=== PATIENT | male | born 1955 | race African-American/Black ===

== ENCOUNTER 2017-02-07 12:23 | Observation (INO) | payer OTHER ==
--- NOTE | ~2017-02-07 | CO ---
Unit #: [id number] #: [id number] Patient: JUVENCIO GLEZ [id number] [address] [place], [place] [address] [id number] I MR#: [id number] NAME: JUVENCIO GLEZ ROOM: 566 Age: 61 Sex: M Admission Date: 02/07/2017 : 1955 Attending Physician: Yoana Hernandez M.D. Primary Care Physician: Primary Care Physician No Requesting Physician: Osvaldo Rebolledo M.D. Consultation Date: 02/08/2017 CONSULTATION REPORT REASON FOR CONSULTATION Severe anemia, please evaluate. HISTORY OF PRESENT ILLNESS Mr. Juvencio Glez is a 61-year-old with a history of previous stroke on aspirin and COPD, was admitted to the hospital complaining of chest pain. Apparently, the patient was noted to be severely anemic with a hemoglobin of 8.8 and MCV 71.9 leading to this consultation. Mr. Jaimes himself is a poor historian. Much of the information obtained from the records. He did have a colonoscopy in 2012, which was negative. He tells me he may have blood in the stools, has been taking aspirin 81 mg, although admitted aspirin dosage as 325 mg. Workup of chest pain so far been negative and he is scheduled for possible discharge home after being evaluated by [facility]. No history of anemia according to him nor of any blood transfusions. PAST MEDICAL HISTORY 1. History of hypertension. 2. Stroke 3 to 4 years ago. 3. Gastroesophageal reflux disease. 4. Seizure disorder. 5. Thyroid problems. PAST SURGICAL HISTORY Includes; 1. Tonsillectomy. 2. Rectal abscess. 3. Hand surgery. FAMILY HISTORY Apparently of coronary artery disease. SOCIAL HISTORY Smokes about a pack a day. He is trying to quit. Does not drink any alcohol. His urine drug screen was negative. REVIEW OF SYSTEMS Not reliable as the patient is a poor historian and keeps changing his story. PHYSICAL EXAMINATION GENERAL: He is a middle-aged man, sitting up in a chair, in no distress. Awake, alert, and oriented x3. VITAL SIGNS: Temperature is 97.6, pulse is 91, respirations 18, blood Unit #: [id number] #: [id number] Patient: REYNALDO,JUVENCIO pressure 162/107, and O2 saturation 100% on room air. HEENT: Shows pallor. Pupils are equal and reactive well to light. Mucous membranes are moist. NECK: Without adenopathy, JVD, or thyromegaly. CARDIOVASCULAR: First and second heart sounds are heard and regular without murmurs, gallops, or rubs. LUNGS: Chest expansion is symmetric. Bilateral equal air entry. Normal breath sounds. ABDOMEN: Soft and nontender. EXTREMITIES: Warm with good pulses. No edema, cyanosis or clubbing. NEUROLOGIC: He is awake, alert, and oriented x3 without any focal findings. SKIN: Negative. LYMPHATIC: Negative. PSYCHIATRIC: Affect is normal. Continues to wander, may confabulate as well. DIAGNOSTIC STUDIES LABORATORY RESULTS: Hemoglobin 6.2. Urine drug screen is negative. CBC has a white count of 9.1, hemoglobin is 8.8, MCV 71.3, and platelet count is 444,000. Basic metabolic panel shows a BUN of 13, creatinine is 1. CBC done in the past shows that his MCV has been normal previously being 85.9 on 03/10/2009. He has had red cell microcytosis for a number of years dating back to at least 2009. ASSESSMENT AND PLAN Mr. Juvencio Jaimes is a 61-year-old with a history of stroke, was admitted with chest pain, on aspirin therapy, admitted with microcytic anemia, MCV has been normal in 2008. This is most likely iron deficiency anemia. He did have a negative colonoscopy in 2012, but given 4-year gap, should probably have it again. RECOMMENDATIONS 1. Parenteral iron with Ferrlecit 250 mg IV x1. 2. Ferrous sulfate 324 mg p.o. three times a day. 3. Evaluation with GI endoscopy. This can be done as an outpatient. Thank you for allowing me to participate in his care. Dictated by... Gema Ellington/miguel angel TD: 02/09/2017 02:45 JOB #: [id number] CONSULTATION REPORT Page 1 of 1 X Ash Schroeder MD X CONSULTATION REPORT
--- NOTE | ~2017-02-07 | CO ---
Unit #: [id number] #: [id number] Patient: JUVENCIO GLEZ [id number] [address] [address] [id number] I MR#: [id number] NAME: JUVENCIO GLEZ ROOM: 566 Age: 61 Sex: M Admission Date: 02/07/2017 : 1955 Attending Physician: Yoana Hernandez M.D. Consultation Date: 02/08/2017 CONSULTATION REPORT REASON FOR CONSULTATION Anxiety, agitation, paranoia. HISTORY OF PRESENT ILLNESS Mr. Juvencio Glez is a 61-year-old male, seen in room 566, bed 1 on 02/08/2017. The patient has a history of bipolar disorder, last admitted at [facility] in 2014, currently on no psychotropic medication. The patient was admitted with chest discomfort, reported history of cocaine abuse and alcohol abuse. The patient denied any recent use. The patient was somewhat agitated, confused, guarded. The patient's urine drug screen was negative. The patient dressed in hospital attire, eating his lunch, needing some redirection, but no aggression. The patient currently denied any suicidal or homicidal ideation. Denied any auditory or visual hallucination. The patient was somewhat guarded. Reported history of alcohol abuse, cocaine abuse. Reported good support system. PAST PSYCHIATRIC HISTORY Remarkable for history of inpatient treatment couple of years ago at [facility] for bipolar mood disorder. No history of any suicide attempt. MEDICAL HISTORY Remarkable for hypertension, stroke, gastroesophageal reflux disease, anemia, gastrointestinal problems, seizure, thyroid problem, respiratory problem. MEDICATION HISTORY The patient is on Protonix, Zestril, prednisone, Toprol, Os-Vick, Vibramycin, NovoLog. Please refer to MAR for detail. FAMILY HISTORY AND SOCIAL HISTORY The patient reports that he has a good support system. No history of any abuse. History of substance abuse as mentioned above. REVIEW OF SYSTEMS Complete review of systems unremarkable except as mentioned above. MENTAL STATUS EXAMINATION Vital signs; pulse 88, respirations 18, blood pressure 141/78, oxygen saturation 100%, temperature 98.3. General appearance; the patient dressed casually, sitting comfortably in chair, eating his breakfast. Attention span and concentration, poor. Speech, rapid. Oriented in self and place. Mood and affect, labile. Thought process, circumstantial and Unit #: [id number] #: [id number] Patient: JUVENCIO GLEZ guarded. Thought content, guarded and paranoid, but denied any thoughts of harming self or others. Denied any auditory or visual hallucination. Recent and remote memory, fair to slightly impaired. Language, fair. Fund of knowledge, fair to slightly impaired. Insight and judgment, fair to slightly impaired. DIAGNOSES Psychiatric: Psychosis, not otherwise specified, F29.0; agoraphobia with panic disorder, F40.01; cocaine use disorder, moderate to severe, F14.20; alcohol use disorder, moderate to severe, F10.20. Secondary diagnosis: Deferred. Medical diagnosis: Please refer to H and P. Stressors: Psychosocial stressor. ASSESSMENT/PLAN 1. Supportive psychotherapy and psychoeducation provided to the patient. 2. Educated about benefits and side effects of medication and course and prognosis of illness. 3. Advised Zyprexa 5 mg b.i.d. and advised to monitor the patient closely, also advised Vistaril 25 mg t.i.d. for anxiety. We will continue to follow. Please feel free to call if any questions telephone #[phone]. Dictated by... Gema Fu/miguel angel TD: 02/09/2017 01:50 JOB #: [id number] CONSULTATION REPORT Page 1 of 1 X Herminio Knutson MD X CONSULTATION REPORT
--- NOTE | ~2017-02-07 | CO ---
Unit #: [id number] #: [id number] Patient: ELSIE JACOBS [id number] [facility] [address] [facility]. [place], [place] [address] [id number] I MR#: [id number] NAME: ELSIE JACOBS ROOM: 566 Age: 61 Sex: M Admission Date: 02/07/2017 : 1955 Attending Physician: Yoana Hernandez M.D. Consultation Date: 02/08/2017 CONSULTATION REPORT REASON FOR CONSULTATION Anemia and medical management. HISTORY OF PRESENT ILLNESS The patient is a 61-year-old male with a past medical history of COPD with continued tobacco abuse, hypertension, cerebrovascular accident, GERD, bipolar disorder, and degenerative disc disease, who was admitted by Dr. Rebolledo for chest pain. The patient is a poor historian and is quite tangential at the time of evaluation. He apparently presented to the emergency department for chest pain. He now denies any type of chest pain and no trouble breathing. He states that he has not had any vomiting or diarrhea. He denies any blood in the stool or black tarry stool. He is without complaints but does not really answer any questions directly. The patient's hemoglobin was 8.8 this morning. It was 8.9 yesterday. MCV is 71.3. Hemoglobin was previously 13.8 on December 28, 2014. Hematology has been consulted and has already ordered iron studies. Psychiatry has been consulted as well. We have been asked to assume care. PAST MEDICAL HISTORY 1. Admission to [facility] March 22-2009, for pneumonia. 2. Hypertension. 3. Cerebrovascular accident. 4. Gastroesophageal reflux disease. 5. Anemia. 6. Chronic obstructive pulmonary disease with continued tobacco abuse. 7. Bipolar disorder. 8. Degenerative disc disease. PAST SURGICAL HISTORY 1. EGD March 23, 2010, showed mild to moderate Sirisha esophagitis with distal erosive esophagitis and medium-sized hiatal hernia. Colonoscopy March 14, 2013, was completely normal. 2. Tonsillectomy. 3. Incision and drainage for rectal abscess. SOCIAL HISTORY The patient smokes cigars. He states that he has an occasional cocktail. He walks without assistance. FAMILY HISTORY Notable for his dad having lung cancer. Unit #: [id number] #: [id number] Patient: ELSIE JACOBS ALLERGIES No known allergies. HOME MEDICATIONS 1. Sulfasalazine 500 mg daily. 2. Prednisone 5 mg daily. 3. Amlodipine 7.5 mg daily. 4. Metoprolol 25 mg daily. 5. Hydralazine 25 mg t.i.d. 6. Zestril 10 mg daily. 7. Metformin 1000 mg twice daily. 8. Neurontin 100 mg q.8 hours. 9. Carmine 7.5/325 at 4 times daily. 10. Amaryl 2 mg daily. 11. Hydroxyzine 10 mg t.i.d. 12. Clobetasol cream. 13. Ondansetron. 14. Leflunomide 10 mg daily. 15. Lomotil 4 times daily. 16. Doxycycline 100 mg twice daily. 17. Multivitamin daily. 18. Calcium plus D daily. REVIEW OF SYSTEMS A complete review of systems is negative except as indicated in the History of Present Illness. The patient states that his weight "fluctuates." PHYSICAL EXAMINATION VITAL SIGNS: Temperature is 97.6, pulse 91, respirations 18, blood pressure 162/107, and oxygen saturation is 100% on room air. GENERAL: Patient is an male who is pacing his room. He is in no acute distress. HEENT: Head is atraumatic. Mucous membranes are moist. NECK: Supple. Trachea is midline. CARDIOVASCULAR: Regular rate and rhythm. LUNGS: Occasional expiratory wheezes. Breathing is not labored with conversation. ABDOMEN: Soft and nontender with bowel sounds present in all four quadrants. EXTREMITIES: Nontender with no pedal edema. NEUROLOGIC: Patient is awake and alert. He is moving all extremities. PSYCHIATRIC: Patient is very tangential. He is cooperative. SKIN: Skin of examined areas is warm and dry. DIAGNOSTIC STUDIES LABORATORY: Complete blood count from today notable hemoglobin and hematocrit of 8.8 and 29.1, respectively, MCV of 71.3, RDW 18.3, and platelets are 444,000. Basic metabolic panel is completely normal. Troponin is less than 0.03. Urine toxicology screen is negative. Urinalysis is essentially negative. Hemoglobin A1c is 6.2. IMAGING: Chest x-ray from yesterday was normal. CARDIOLOGY: EKG shows normal sinus rhythm with a rate of 92 beats per minute. ASSESSMENT Unit #: [id number] #: [id number] Patient: ELSIE JACOBS The patient is a 61-year-old male with: 1. Chest pain. Cardiology has cancelled the stress test. The patient denies any chest pain currently. 2. Chronic obstructive pulmonary disease with continued tobacco abuse. 3. Microcytic anemia. The patient's hemoglobin was 8.9 yesterday. It is 8.8 today. It was 13.8 on December 28, 2014. He has had EGD and colonoscopy as noted above. He denies any current blood in the stool or black tarry stool. Hematology has already seen the patient and recommended Gastroenterology evaluation. 4. Hypertension. 5. Cerebrovascular accident. 6. Gastroesophageal reflux disease. 7. Bipolar disorder. Dr. Knutson is also following. 8. Degenerative disc disease. PLAN 1. Regarding anemia, iron studies have already been ordered by Dr. Blanco. I have ordered Hemoccult stool and consulted Dr. Mccauley for possible endoscopy. Will change the patient's diet to clear liquid for possible endoscopy. 2. Hemoglobin and hematocrit q.6 hours. 3. Additional workup and consultants based on above. 1. Dictated by... Gema Figueroa/asiya TD: 02/08/2017 14:47 JOB #: [id number] CONSULTATION REPORT Page 1 of 1 X Yoana Hernandez MD X CONSULTATION REPORT
--- NOTE | ~2017-02-07 | TH ---
Unit #: [id number] #: [id number] Patient: ELSIE JACOBS [id number] [address] [address] [id number] I MR#: [id number] NAME: ELSIE JACOBS : 1955 SEX: M STUDY DATE/TIME: 02/08/2017 UNIT: [facility] ROOM: 566 STUDY DESCRIPTION: Stress Nuclear Study Attending Physician: Yoana Hernandez M.D. Referring Physician: Self Referral-Refer Use Only Primary Care Physician: No Primary Care Physician CARDIOLOGY REPORT EXAM Stress nuclear study INDICATION Chest pain. SUMMARY The patient was given technetium-99m Cardiolite 10.73 mCi at rest. The patient was instructed to hold still during acquisition. Patient was verbally and physically very active during the acquisition, and would not follow recommendations so that accurate assessment could be performed. Therefore, resting only studies were done. The resting study showed no significant un-perfused areas, but because of the very large shifts, this study was processed one frame at a time, and small areas may not be adequately assessed. IMPRESSION 1. No resting perfusion defect visualized. 2. Consider repeat study when patient is able to follow directions. Dictated by... Gema Rahman/brianna TD: 02/08/2017 17:27 JOB #: [id number] CARDIOLOGY REPORT Page 1 of 1 X Osvaldo Rebolledo MD CARDIOLOGY REPORT
--- NOTE | ~2017-02-07 | HP ---
Unit #: [id number] #: [id number] Patient: ELSIE GLEZ [id number] [address] [place], [place] [address] [id number] I MR#: [id number] NAME: ELSIE GLEZ ROOM: 77297 Age: 61 Sex: M Admission Date: 02/07/2017 : 1955 Attending Physician: Osvaldo Rebolledo M.D. HISTORY AND PHYSICAL CHIEF COMPLAINT Chest pain. HISTORY OF PRESENT ILLNESS Mr. Glez is a 61-year-old male who has not been taking his antihypertensive medications after a TIA. He continues to smoke and has COPD. He has no primary care physician and has a psychiatric history which makes accurate history suboptimal. He notes to the ER physician chest pain, but with me, he is very vague about how this occurs, how it is relieved, and how often it occurs. To the ER physician, he said it comes and goes, and it is associated with shortness of breath and heartburn, but is unsure about how long it lasts. It was not present when we saw him. His initial troponins were normal. His initial ECG showed no diagnostic ST shifts. However, there were biphasic T waves in lead AVF; thus, it was abnormal rest ECG. As I evaluated him in his room, I found that he had knocked his urine containers off and urine was all over the floor. His crackers and the empty packages were on the floor, as well as most of the cart sheets on the floor. He said that all he wanted was something to drink. A GI cocktail was given with some relief. PAST MEDICAL HISTORY 1. Hypertension. 2. Stroke. 3. Gastroesophageal reflux disease. 4. Anemia. 5. Gastrointestinal problems. 6. Seizures. 7. Psychiatric history. 8. Thyroid history. 9. Respiratory history. Denies diabetes or cholesterol. PAST SURGICAL HISTORY 1. Left hand surgery. 2. Tonsillectomy. 3. Rectal abscess. FAMILY HISTORY Premature atherosclerotic disease he says. His father had a pacemaker. Hard to localize whether or not it was premature. Unit #: [id number] #: [id number] Patient: ELSIE GLEZ SOCIAL HISTORY Continues to smoke. Denies alcohol. He says he does not do much cocaine and never heroin. ALLERGIES None known. MEDICATIONS He states that he is unsure but has not taken anything in a while. REVIEW OF SYSTEMS Not thought to be accurate. He says he does not sleep well. PHYSICAL EXAMINATION VITAL SIGNS: Blood pressure 152/82, heart rate 97 and regular, and respiratory rate is 23. GENERAL: Pleasant, alert, in no acute distress. SKIN: Warm and dry. No xanthelasma. MUSCULOSKELETAL: No missing digits. Moves easily for evaluation. NEUROLOGICAL: Appropriate mood and affect. Alert and oriented x3. HEENT: Pupils equal, round and reactive. No oral cyanosis. No icterus. NECK: Carotids clear to auscultation with no carotid bruits. Normal carotid upstroke bilaterally. Thyroid is normal in size and texture without masses or tenderness. LUNGS: Inspiratory and expiratory wheezes. CARDIAC: Normal point of maximum impulse. Normal S1 and S2. No S3, S4 or rub. ABDOMEN: No hepatosplenomegaly, masses or tenderness. Normal bowel sounds. No abdominal bruits heard. EXTREMITIES: No clubbing, cyanosis or edema. Excellent posterior tibial and dorsalis pedis pulses. DIAGNOSTIC STUDIES LABORATORY: Creatinine is 0.9 and potassium 3.8. Liver enzymes slightly elevated at 81 and 51 AST and ALT. Hemoglobin is 8.9, white blood count 11.7, and platelet count 445,000. CARDIOLOGY: ECG is as noted above. IMPRESSION 1. Chest pain, nondescript, probable gastrointestinal, possible heart. 2. Chronic obstructive pulmonary disease with continued smoking. 3. Abnormal ECG with biphasic T waves lead III and slight ST depression. 4. Tobacco abuse. 5. Hypertension, untreated, medication not taken. 6. History of cerebrovascular accident. 7. Family history of coronary artery disease. 8. Anemia. PLANS 1. Stress and echo. 2. Check overnight oximetry. 3. Check Hemoccult. 4. Hopefully home tomorrow. 5. Have Dr. Knutson see regarding psych history. 1. Unit #: [id number] #: [id number] Patient: ELSIE GLEZ Dictated by Gema Rahman TD: 02/07/2017 20:36 JOB #: [id number] HISTORY AND PHYSICAL Page 1 of 1 X Osvaldo Rebolledo MD HISTORY AND PHYSICAL
--- NOTE | ~2017-02-07 | EKG ---
PATIENT: ELSIE JACOBS UNIT #: [id number] Ventricular Rate: 92 BPM Atrial Rate: 92 BPM P-R Interval: 138 ms QRS Duration: 74 ms Q-T Interval: 364 ms QTC Calculation(Bezet): 450 ms P Power: 84 degrees Calculated R Power: -4 degrees Calculated T Power: -21 degrees Diagnosis Line: Normal sinus rhythm Diagnosis Line: Nonspecific ST abnormality Diagnosis Line: Otherwise normal ECG Diagnosis Line: When compared with ECG of 28-DEC-2014 19:21, Diagnosis Line: Vent. rate has increased BY 37 BPM Diagnosis Line: Non-specific change in ST segment in Lateral leads Diagnosis Line: Confirmed by LISBETH LIN MD ([id number]) on 02/08/2017 Diagnosis Line: 6:00:52 PM INTERPRETING MD: DELIA DAIGLE
--- NOTE | ~2017-02-07 | CR72 ---
[facility] A Service of [facility] RADIOLOGY TEXT RESULTS PATIENT: ELSIE JACOBS LOCATION: [facility] : 57 UNIT #: [id number] AGE: [address]: Giuseppe Zhang MD SEX: M ORDER DR: [id number] [facility] [address] [facility]. [place], [place] [address] [id number] MR#: [id number] Acc #: [id number] NAME: ELSIE JACOBS : 1955 SEX: M STUDY DATE/TIME: 02/07/2017 13:08 UNIT: [facility] ROOM: STUDY DESCRIPTION: CR Chest Single View Portable Attending Physician: Giuseppe Zhang Referring Physician: Self Referral-Refer Use Only Ordering Physician: Giuseppe Saldivar M.D. Primary Care Physician: Primary Care Physician No MEDICAL IMAGING REPORT This report is preliminary unless electronic signature is present EXAM Portable chest 02/07 INDICATIONS Pneumonia. Shortness of air. Symptoms for 1 month. History of hypertension and COPD. COMPARISON 12/24/2013 FINDINGS A single AP portable view of the chest shows both lungs to be clear. The heart is normal in size. The mediastinal contour is normal. No significant bone abnormalities are seen. IMPRESSION Normal portable chest. Dictated by... Jefferson Malloy Jr., M.D. THIS IS AN ELECTRONICALLY VERIFIED REPORT Jefferson Malloy Jr., M.D. at 02/07/2017 6:34 PM RLK/queta TD: 02/07/2017 17:01 JOB #: [id number] MEDICAL IMAGING REPORT Page 1 of 1 COPY
[~2017-02-07 12:23] MED LIST: ADVAIR; ALBUTEROL17 GM; ALBUTEROL17 GM INH; AMLODIPINE BESYL5 MG PO; ANTIINFLAMMATORY MED; ATENOLOL PO; ATENOLOL50 MG PO; BENZONATATE PO; CAPOZIDE PO; DEPAKOTE PO; DEPAKOTE250 MG PO; DIAZEPAM10 MG PO; DIFLUCAN100 MG PO; HYDROCHLOROTHIA25 MG PO; K-DUR10 MEQ PO; LEVAQUIN250 MG PO; LEVOTHYROXINE25 MCG PO; LISINOPRIL PO; LORTAB 5/500 TA1 TA1 PO; LORTAB 7.5-5001 TAB PO; MEDROL4 MG/DOSE- PO; MIRTAZAPINE30 MG PO; NEXIUM; NORVASC10 MG PO; OMEPRAZOLE40 MG PO; ORUDIS75 M1 PO; PAIN RELIEF325 MG PO; PREDNISONE PO; PROCTOFOAM-HC F10 GM PR; ST. JOSEPH ASP325 MG PO; SYMBICORT INH; TEMAZEPAM30 MG PO; VALIUM10 MG PO; ZITHROMAX PO; ZYPREXA10 MG PO
[2017-02-07 13:28] LABS: BASOPHIL# 0.1 X10e3 (0-0.3); BASOPHIL% 0.8 % (0-2.5); EOSINOPHIL# 0.4 X10e3 (0-0.7); EOSINOPHIL% 3.7 % (0.0-7.0); HEMATOCRIT 29.5 % (38.0-50.0); HEMOGLOBIN 8.9 gm/dL (13.0-16.0); LYMPHOCYTE# 1.5 X10e3 (1.0-3.5); LYMPHOCYTE% 12.6 % (17.0-45.0); MEAN CORPUSCULAR HEMOGLOBIN 21.3 PG (28-34); MEAN CORPUSCULAR HGB CONC 30.1 g/dL (30-36); MEAN PLATELET VOLUME 7.4 FL (6.5-11.5); MONOCYTE% 8.3 % (3.0-12.0); NEUTROPHIL# 8.7 X10e3 (1.5-7.1); NEUTROPHIL% 74.6 % (40-75); PLATELET COUNT 445 X10e3 (140-420); RED BLOOD COUNT 4.15 X10e (3.90-5.60); RED CELL DISTRIBUTION WIDTH 18.9 % (11.0-15.5); WHITE BLOOD COUNT 11.7 X10e3 (4.0-10.5)
[2017-02-07 13:28] LABS: POC - CKMB 20.3 ng/mL (0.0-7.9); POC - TROPONIN <0.05 ng/mL (<=0.05)
[2017-02-07 13:35] LABS: DIFF IND NO
[2017-02-07 13:48] LABS: INR 0.9; PARTIAL THROMBOPLASTIN TIME 20.6 SECONDS (23.5-31.3); PROTHROMBIN TIME (PATIENT) 9.8 SECONDS (9.6-11.5)
[2017-02-07 13:56] LABS: ALBUMIN SERUM 3.9 g/dL (3.5-5.0); BILIRUBIN, DIRECT 0.1 mg/dL (0.0-0.2); BILIRUBIN,INDIRECT 0.4 mg/dL (0.0-0.9); BILIRUBIN,TOTAL 0.5 mg/dL (0.2-2.0); CALCIUM SERUM 8.8 mg/dL (8.4-10.2); CREATININE SERUM 0.9 mg/dL (0.6-1.4); GLOM FILT RATE Estimated 107.2 mL/min (>60); POTASSIUM 3.8 mmol/L (3.5-5.1); PROTEIN TOTAL SERUM 7.7 g/dL (6.0-8.3)
[2017-02-07 15:34] LABS: POC - CKMB 10.5 ng/mL (0.0-7.9); POC - TROPONIN <0.05 ng/mL (<=0.05)
[2017-02-07] MEDS ORDERED: PATIENT'S PHARMACY (16:43)
[2017-02-07 17:22] LABS: AMPHETAMINE NEG (NEG); BARBITURATES NEG (NEG); BENZODIAZEPINES NEG (NEG); COCAINE NEG (NEG); MARIJUANA NEG (NEG); OPIATES NEG (NEG); TRICYCLIC ANTIDEPRESSANTS NEG (NEG); U METHADONE NEG (NEG)
[2017-02-07] MEDS ORDERED: AZULFIDINE500 M1 PO (18:01)
[2017-02-07] MEDS ORDERED: PREDNISONE5 M1 PO (18:02)
[2017-02-07] MEDS ORDERED: LEFLUNOMIDE10 MG PO (18:02)
[2017-02-07] MEDS ORDERED: AMLODIPINE BESYL5 MG PO (18:03)
[2017-02-07] MEDS ORDERED: HYDRALAZINE HCL25 MG PO (18:04)
[2017-02-07] MEDS ORDERED: METOPROLOL SUCC25 MG PO (18:04)
[2017-02-07] MEDS ORDERED: METFORMIN HCL1000 M2 PO (18:05)
[2017-02-07] MEDS ORDERED: LISINOPRIL PO (18:05)
[2017-02-07] MEDS ORDERED: NEURONTIN100 MG PO (18:06)
[2017-02-07] MEDS ORDERED: HYDROCODON-ACE1 EAC9 PO (18:07)
[2017-02-07] MEDS ORDERED: HYDROXYZINE HCL10 MG PO (18:07)
[2017-02-07] MEDS ORDERED: AMARYL2 MG PO (18:07)
[2017-02-07] MEDS ORDERED: CLOBETASOL E 0.60 GM TOP (18:08)
[2017-02-07] MEDS ORDERED: ONDANSETRON ODT4 MG PO (18:08)
[2017-02-07] MEDS ORDERED: LOMOTIL 2.5-0.1 EACH PO (18:09)
[2017-02-07] MEDS ORDERED: DOXYCYCLINE HY100 M3 PO (18:10)
[2017-02-07] MEDS ORDERED: CALCIUM + D SO1 EACH PO (18:11)
[2017-02-07] MEDS ORDERED: MULTI VITAMIN1 EACH PO (18:11)
[2017-02-07 18:58] LABS: CHOLESTEROL 156 mg/dL (0-200); HDL CHOLESTEROL 41 mg/dL (29-75); LDL CHOLESTEROL 80 mg/dL (-130); LDL/HDL RATIO 2 RATIO (0-4); TRIGLYCERIDES 173 mg/dL (10-160)
[2017-02-08 04:45] LABS: BASOPHIL% 0.4 % (0-2.5); DIFF IND NO; EOSINOPHIL# 0.6 X10e3 (0-0.7); EOSINOPHIL% 6.8 % (0.0-7.0); HEMATOCRIT 29.1 % (38.0-50.0); HEMOGLOBIN 8.8 gm/dL (13.0-16.0); LYMPHOCYTE# 1.9 X10e3 (1.0-3.5); LYMPHOCYTE% 21.1 % (17.0-45.0); MEAN CELL VOLUME 71.3 FL (83-96); MEAN CORPUSCULAR HEMOGLOBIN 21.5 PG (28-34); MEAN CORPUSCULAR HGB CONC 30.1 g/dL (30-36); MEAN PLATELET VOLUME 7.1 FL (6.5-11.5); MONOCYTE# 0.8 X10e3 (0-1.0); MONOCYTE% 8.5 % (3.0-12.0); NEUTROPHIL# 5.8 X10e3 (1.5-7.1); NEUTROPHIL% 63.2 % (40-75); PLATELET COUNT 444 X10e3 (140-420); RED BLOOD COUNT 4.09 X10e (3.90-5.60); RED CELL DISTRIBUTION WIDTH 18.3 % (11.0-15.5); WHITE BLOOD COUNT 9.1 X10e3 (4.0-10.5)
[2017-02-08 05:03] LABS: CALCIUM SERUM 8.4 mg/dL (8.4-10.2); GLOM FILT RATE Estimated 94.4 mL/min (>60); MAGNESIUM 2.1 mg/dL (1.6-3.0); POTASSIUM 3.9 mmol/L (3.5-5.1)
[2017-02-08 05:16] LABS: URINE SOURCE CLEAN CATCH
[2017-02-08 05:43] LABS: AMPHETAMINE NEG (NEG); BARBITURATES NEG (NEG); BENZODIAZEPINES NEG (NEG); COCAINE NEG (NEG); MARIJUANA NEG (NEG); OPIATES NEG (NEG); TRICYCLIC ANTIDEPRESSANTS NEG (NEG); U METHADONE NEG (NEG)
[2017-02-08 05:45] LABS: URINE APPEARANCE CLEAR; URINE BILIRUBIN NEG (NEG); URINE BLOOD NEG (NEG); URINE COLOR YELLOW; URINE GLUCOSE NEG (NEG); URINE KETONE NEG (NEG); URINE LEUKOCYTE ESTERASE NEG (NEG); URINE NITRATE NEG (NEG); URINE PROTEIN NEG (NEG); URINE SPECIFIC GRAVITY 1.006 (1.003-1.035); URINE UROBILINOGEN 0.2 MG/DL (NEG)
[2017-02-08 05:49] LABS: CULTURE INDICATED? NO
[2017-02-08 14:01] LABS: HEMATOCRIT 30.5 % (38.0-50.0); HEMOGLOBIN 9.1 gm/dL (13.0-16.0)
[2017-02-08 14:14] LABS: IRON SERUM 30 ug/dL (45-182); TOTAL IRON BINDING CAPACITY 397 ug/dL (252-460); TRANSFERRIN 284 mg/dL (180-329); TRANSFERRIN SATURATION 8 % (20-50)
[2017-02-08 14:20] LABS: FERRITIN 10 ng/mL (24-336)
== END 2017-02-08 16:26 | disposition home or self-care (01) ==
LOC: CED 12:23 → CEDOF 18:00 → CED 20:14 → C5C 20:14 → CEDOF 21:18 → C5C 02-08 16:26
PROVIDERS: Emergency Medicine; Family Medicine; Internal Medicine Hematology & Oncology
DX: R07.89 Other chest pain (principal); J44.9 Chronic obstructive pulmonary disease, unspecified; F17.290 Nicotine dependence, other tobacco product, uncomplicated; R94.31 Abnormal electrocardiogram [ECG] [EKG]; I10 Essential (primary) hypertension; F31.9 Bipolar disorder, unspecified; F40.01 Agoraphobia with panic disorder; F14.20 Cocaine dependence, uncomplicated; F10.20 Alcohol dependence, uncomplicated; Z86.73 Personal history of transient ischemic attack (TIA), and cerebral infarction without residual deficits; Z82.49 Family history of ischemic heart disease and other diseases of the circulatory system; D50.9 Iron deficiency anemia, unspecified; F29 Unspecified psychosis not due to a substance or known physiological condition
CPT/HCPCS: 71010; 78451; 80048; 80061; 80076; 80307; 81003; 82553; 82607; 82728; 82947; 83036; 83540; 83550; 83735; 84443; 84484; 85014; 85018; 85025; 85610; 85730; 93005; 93306; 94640; 94760; 96374; 96375; 99284; A9500; C9113; G0378; J1940; J2785; J2916

== ENCOUNTER 2017-02-14 10:52 | Inpatient (IN) | payer OTHER ==
--- NOTE | ~2017-02-14 | HP ---
Unit #: [id number] #: [id number] Patient: JUVENCIO JACOBS [id number] [place] [address] [id number] I MR#: [id number] NAME: JUVENCIO JACOBS ROOM: [facility] Age: 61 Sex: M Admission Date: 02/14/2017 : 1955 Attending Physician: Nasir Calvillo M.D. Admitting Physician: Nasir Calvillo M.D. Primary Care Physician: Primary Care Physician No HISTORY AND PHYSICAL HISTORY OF PRESENT ILLNESS Juvencio is a 61 year old admitted to [address] [place] [address] with psychotic behavior. He is a poor historian so his history is taken from his chart. Exam is limited. PAST MEDICAL HISTORY 1. High blood pressure 2. History of CVA 3. History of anemia 4. Seizure disorder 5. COPD PAST SURGICAL HISTORY 1. Left hand 2. T&A ALLERGIES No known drug allergies. SOCIAL HISTORY Smokes at least one pack per day. Denies alcohol. Has a history of cocaine use. FAMILY HISTORY Medically noncontributory. REVIEW OF SYSTEMS He does not answer all questions appropriately. There are no reports of nausea, vomiting or diarrhea. He has had no cough or increased temperature. CURRRENT MEDICATIONS 1. Zyprexa 5 mg b.i.d. 2. Milk of Magnesia p.r.n. 3. Maalox p.r.n. 4. Tylenol p.r.n. 5. Nicotine patch 14 mg q day PHYSICAL EXAMINATION GENERAL: Alert, well-nourished, in no apparent distress. VITAL SIGNS: Blood pressure 170/96, heart rate 80, respirations 16, temperature 98.6. Unit #: [id number] #: [id number] Patient: JUVENCIO JACOBS WEIGHT: 201 pounds. HEIGHT: 6'0". SKIN: Warm and dry without rash or lesion. HEENT: Normocephalic. TMs not viewed. Oral and nasal passages clear. Conjunctivae clear. Pupils equal, round and reactive to light and accommodation. Extraocular movements intact. NECK: Supple without lymphadenopathy or thyromegaly. HEART: Regular rate and rhythm without murmur. LUNGS: Clear. ABDOMEN: Soft, nontender. : Not done. EXTREMITIES: No evidence of cyanosis, clubbing or edema. Moves all extremities without focal deficit. NEUROLOGICAL: Unable to complete extended exam. He does move all extremities without focal deficit. Hand probate judge is equal and gait is normal. IMPRESSION 1. Psychiatric admission 2. High blood pressure, not controlled on admission. He is admitted on no blood pressure medications. RECOMMENDATIONS PSYCHIATRIC: Per psychiatrist. MEDICAL: 1. I see no contraindications to participating in facility's activities. 2. Identify home blood pressure medication and resume. Monitor blood pressure q shift. MEDICAL PROGNOSIS Good. MEDICAL CONDITION Stable. Dictated by... Marisabel Yuen P.A.-C. for Gema Varela/vicki TD: 02/15/2017 01:17 JOB #: [id number] HISTORY AND PHYSICAL Page 1 of 1 X Marisabel Yuen X HISTORY AND PHYSICAL
--- NOTE | ~2017-02-14 | CO ---
Unit #: [id number] #: [id number] Patient: JUVENCIO JACOBS [id number] [place] [address] [id number] I MR#: [id number] NAME: JUVENCIO JACOBS ROOM: 16 Age: 61 Sex: M Admission Date: 02/14/2017 : 1955 Attending Physician: Nasir Calvillo M.D. Primary Care Physician: Primary Care Physician No Consultation Date: 02/15/2017 CONSULTATION REPORT SUBJECTIVE Juvencio is a 61-year-old originally admitted with psychotic behavior. He has a history of high blood pressure, CVA, seizure disorder, anemia, and COPD. We have been asked to review his home medications. Home medications of Zestril 10 mg daily, Lopressor 25 mg daily, Norvasc 7.5 mg daily, Amaryl 2 mg q.a.m., ferrous gluconate q.a.m., and Glucophage 500 mg b.i.d. will be continued. Dictated by... Marisabel Yuen P.A.-C. for Gema Varela/miguel angel TD: 02/20/2017 22:37 JOB #: [id number] CONSULTATION REPORT Page 1 of 1 X Marisabel Yuen CONSULTATION REPORT
--- NOTE | ~2017-02-14 | DS ---
Unit #: [id number] #: [id number] Patient: ELSIE JACOBS [id number] [place] [address] [id number] I MR#: [id number] NAME: ELSIE JACOBS ROOM: [facility] Age: 61 Sex: M Admission Date: 02/14/2017 : 1955 Discharge Date: 02/19/2017 Attending Physician: Nasir Calvillo M.D. DISCHARGE SUMMARY REASON FOR ADMISSION Dr. Tarango is a 61-year-old man with a history of bipolar disorder, whose family brought him in after he had became noncompliant with psychiatric medications. He had rambling and disorganized thought processes and content, and some behavioral disorganization with irritability. He was admitted for stabilization. LABORATORY DATA Please see the patient's hospital chart for laboratory studies. HOSPITAL COURSE Sukhdeep was admitted and placed on psychosis and suicide precautions. His home medications were explored and restarted, and a consultation was obtained for history of anemia. He was recommended to have a GI endoscopy outside of the hospital as well. He started on a combination of Zyprexa and Prolixin, which has been required in the past to maintain his stability due to severe psychosis and mood lability. He tolerated this medication with no adverse side effects or problems and gradually improved. On the date of discharge, he was a little more logical and able to contract for safety in the outpatient setting, although he will still require close observation and outpatient treatment. DISCHARGE DIAGNOSES AXIS I: Bipolar mixed with psychotic features, history of cocaine abuse. AXIS II: No diagnosis. AXIS III: Hypertension, hypothyroidism, and anemia. AXIS IV: AXIS V: DISCHARGE INSTRUCTIONS Follow up with [facility] and with primary care physician, and medical treatments as recommended. DISCHARGE MEDICATIONS Depakote 500 mg twice daily for mood stability, Zyprexa 5 mg twice daily for psychosis, Prolixin 5 mg at bedtime for treatment of psychosis. Primary care medicines included Norvasc 7.5 mg daily for hypertension, Lopressor 25 mg daily for hypertension, Apresoline 25 mg three times a day for hypertension, Zestril 10 mg daily for hypertension, Glucophage 500 mg twice daily for diabetes, Amaryl 2 mg daily for diabetes, Fergon 325 mg daily for iron supplementation, Lortab 7.5/325 four times a day as needed for pain. Calcium D 500 mg daily for calcium replacement, multivitamin Unit #: [id number] #: [id number] Patient: ELSIE JACOBS tablet daily for vitamin replacement. CONDITION AT DISCHARGE Improved. PROGNOSIS Good. DIET Per primary care doctor. ACTIVITY Per primary care doctor. Dictated by... Nasir Calvillo M.D. ADRIAN/miguel angel TD: 02/20/2017 14:47 JOB #: [id number] DISCHARGE SUMMARY Page 1 of 1 X Nasir Calvillo MD X DISCHARGE SUMMARY
--- NOTE | ~2017-02-14 | PN ---
Unit #: [id number] #: [id number] Patient: ELSIE GLEZ [id number] [place] [address] [id number] I MR#: [id number] NAME: ELSIE GLEZ ROOM: [facility] Age: 61 Sex: M Admission Date: 02/14/2017 : 1955 Attending Physician: Nasir Calvillo M.D. Admitting Physician: Nasir Calvillo M.D. Primary Care Physician: Primary Care Physician Maddi [facility] PROGRESS NOTES DATE February 18, [address] Nasir Calvillo at [facility] DISCUSSION This patient was seen and evaluated on February 18, 2017. Upon today's assessment, I spoke with nursing staff and reported that Mr. Glez has been doing great and has been quite pleasant on the unit, and improved. Upon interviewing the patient he reports that "I'm doing good," and that his medications are working. He has no complaints at this time, reports that the medications are effective. He, again, reiterates that he is looking forward to a discharge on Sunday and he was informed that he needed to talk with his attending doctor, Dr. Nasir Calvillo, regarding perspective discharge and followup care at that time. MENTAL STATUS EXAMINATION Mental status reveals, at this time, a casually dressed male, who was mildly disheveled with fair personal hygiene. He was oriented to person, place, and situation. His mood was pleasant and euthymic with a congruent affect. Speech was relevant and coherent with a normal rate and tone. His thought processes were goal-directed and he was quite focused on discharge at this time. He denies any suicidal or homicidal ideations, denies auditory or visual hallucinations at this time, and no overt symptoms of psychosis is noted. Memory and intellectual functioning are grossly intact. Judgment and insight limited. He reports no issues with sleep and appetite and denies any side effects of the medications from the medication. We will continue to monitor this patient q.15 minutes for safety and provide p.r.n. comfort medications as needed for this patient. Dictated by... MELISSA Sheppard TD: 02/20/2017 12:50 JOB #: [id number] Unit #: [id number] #: [id number] Patient: REYNALDOELSIEJENIFER QUINONEZ PROGRESS NOTES Page 1 of 1 X PEPE ELY PROGRESS NOTE
--- NOTE | ~2017-02-14 | PN ---
Unit #: [id number] #: [id number] Patient: ELSIE JACOBS [id number] [facility] [address] [place] [address] [id number] I MR#: [id number] NAME: ELSIE JACOBS ROOM: 16 Age: 61 Sex: M Admission Date: 02/14/2017 : 1955 Attending Physician: Nasir Calvillo M.D. Admitting Physician: Gema King PROGRESS NOTES DATE OF SERVICE: 02/16/2017 DISCUSSION Sukhdeep is compliant with medications. He is mildly calmer today, but declines engaging in psychiatric interview, literally waving the way with his hands when I attempt to speak with him. He is alert and oriented to person and location. Memory and concentration are only fair. Thought processes were rambling and psychotic. ASSESSMENT Bipolar mixed with psychotic features. PLAN Continue current treatment plan and medications. Dictated by... Gema King/miguel angel TD: 02/20/2017 06:32 JOB #: [id number] [facility] NOTES Page 1 of 1 X Nasir Calvillo MD PROGRESS NOTE
--- NOTE | ~2017-02-14 | PN ---
Unit #: [id number] #: [id number] Patient: ELSIE JACOBS [id number] [place] [address] [id number] MR#: [id number] NAME: ELSIE JACOBS ROOM: [facility] Age: 61 Sex: M Admission Date: 02/14/2017 : 1955 Attending Physician: Nasir Calvillo M.D. Admitting Physician: Nasir Calvillo M.D. Primary Care Physician: Primary Care Physician Maddi CURRY NOTES DATE February 17, [address] Nasir Calvillo at [facility] DISCUSSION The patient was seen and evaluated on February 17, 2017. Upon today's assessment, this patient was found sitting on his bed in his room. He reports that he has been doing well and that he has been taking his medications with no reported side effects at this time, reports that they have been effective. He voices, at this time, that he is looking forward to and wanting to discharge on Sunday and follow up with "[facility]" on [facility] for his medication management. MENTAL STATUS EXAMINATION Mental status at this time reveals a 61-year-old male, who was casually dressed, mildly disheveled with fair personal hygiene. He is oriented to person, place, and situation at this time. His mood was quite pleasant and euthymic and his affect was congruent. His speech was relevant, coherent, with a normal rate and tone. His thoughts appeared goal-directed at that time. He denied any suicidal or homicidal ideation and he denied any visual or auditory hallucinations, and no overt symptoms of psychosis was noted at that time. Neuro intellectual functioning appear grossly intact. Judgment and insight limited. He reports adequate sleep and adequate appetite and denies any side effects to the medications. We will continue to monitor this patient q.15 minutes for safety and signs and symptoms of psychosis. Dictated by... MELISSA Sheppard TD: 02/20/2017 12:40 JOB #: [id number] Unit #: [id number] #: [id number] Patient: ELSIE JACOBS [facility] NOTES Page 1 of 1 X PEPE ELY NOTE
--- NOTE | ~2017-02-14 | PA ---
Unit #: [id number] #: [id number] Patient: JUVENCIO JACOBS [id number] [place] [address] [id number] I MR#: [id number] NAME: JUVENCIO JACOBS ROOM: [facility] Age: 61 Sex: M Admission Date: 02/14/2017 : 1955 Date of Assessment: Attending Physician: Nasir Calvillo M.D. Admitting Physician: Nasir Calvillo M.D. Primary Care Physician: Primary Care Physician No PSYCHIATRIC ASSESSMENT DATE OF SERVICE 02/15/2017. INFORMANTS The patient partially reliable; OLOP, reliable. The patient's family, reliable. CHIEF COMPLAINT Psychosis. HISTORY OF PRESENT ILLNESS Mr. Jacobs is a 61-year-old man with a history of psychotic disorder, who was dropped off by his family in an extremely psychotic and disorganized state. He had a great deal of rambling thoughts, disorganized behavior, and grandiosity. He had been noncompliant with his psychiatric medications and was admitted for further assessment and stabilization. PAST PSYCHIATRIC HISTORY The patient has a history of extended hospitalizations at this facility, the last in 01/2015. He has also been at other local hospitals. He has been noncompliant with psychiatric medications. FAMILY PSYCHIATRIC HISTORY The patient's sister has bipolar disorder. SOCIAL HISTORY The patient denied a history of childhood abuse or neglect. 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 He has never been and has no children. Has some supportive family. PAST MEDICAL HISTORY Significant for hypertension and hypothyroidism. MEDICATIONS Please see MAR. ALLERGIES No known medication allergies. SUBSTANCE ABUSE HISTORY The patient does have a history of cocaine and cannabis abuse and it is unclear if he has been using recently. Unit #: [id number] #: [id number] Patient: JUVENCIO JACOBS MENTAL STATUS EXAMINATION Juvencio presented as a mildly disheveled man who appeared older than his stated age. He was quiet, but cooperative with the examination. His speech was soft, rambling, and hard to understand. Musculoskeletal examination demonstrated mild psychomotor agitation. His mood was labile with a congruent affect. He was alert and fully oriented. Memory and concentration were fair. Thought processes were goal directed with no active psychosis. He denied active suicidal ideation, intent, or plan but was clearly decompensated and could not maintain stability outside of the hospital. Insight and judgment were fair. Fund of knowledge and abstraction were fair. ASSETS AND LIABILITIES Assets; the patient has supportive family and knows local resources. Liabilities; include noncompliance with medication. ADMITTING DIAGNOSES AXIS I: Bipolar mixed with psychotic features. AXIS II: No diagnosis. AXIS III: Hypothyroidism, history of hypertension. AXIS IV: AXIS V: PSYCHIATRIC PLAN The patient was admitted and placed on psychosis precautions. We will contact his pharmacy to determine his current medical treatments and restart those as appropriate. He will be restarted on Depakote 500 mg b.i.d. and will use the combination of Zyprexa 5 mg b.i.d. and fluphenazine 5 mg at bedtime, that has been successful for him in the past. He will enroll in psychotherapy groups and activities, and a physical examination and laboratory studies will be ordered and reviewed. Treatment goals are resolution of psychosis, improvement in reality testing, improvement in insight, and improvement in coping skills. DISCHARGE PLANNING Follow up with [facility]. ESTIMATED LENGTH OF STAY 5 days. Dictated by... Nasir Calvillo M.D. [facility]/miguel angel TD: 02/20/2017 14:49 JOB #: [id number] Unit #: [id number] #: [id number] Patient: JUVENCIO JACOBS PSYCHIATRIC ASSESSMENT Page 1 of 1 X Nasir Calvillo MD PSYCHIATRIC ASSESSMENT
[~2017-02-14 10:52] MED LIST changes: +AMARYL2 MG PO; +AZULFIDINE500 M1 PO; +CALCIUM + D SO1 EACH PO; +CLOBETASOL E 0.60 GM TOP; +DOXYCYCLINE HY100 M3 PO; +HYDRALAZINE HCL25 MG PO; +HYDROCODON-ACE1 EAC9 PO; +HYDROXYZINE HCL10 MG PO; +LEFLUNOMIDE10 MG PO; +LOMOTIL 2.5-0.1 EACH PO; +METFORMIN HCL1000 M2 PO; +METOPROLOL SUCC25 MG PO; +MULTI VITAMIN1 EACH PO; +NEURONTIN100 MG PO; +ONDANSETRON ODT4 MG PO; +PATIENT'S PHARMACY; +PREDNISONE5 M1 PO
[2017-02-15 10:20] LABS: BASOPHIL# 0.1 X10e3 (0-0.3); BASOPHIL% 0.8 % (0-2.5); EOSINOPHIL# 0.6 X10e3 (0-0.7); EOSINOPHIL% 6.2 % (0.0-7.0); HEMATOCRIT 27.7 % (38.0-50.0); HEMOGLOBIN 8.3 gm/dL (13.0-16.0); LYMPHOCYTE# 1.5 X10e3 (1.0-3.5); LYMPHOCYTE% 16.3 % (17.0-45.0); MEAN CELL VOLUME 72.3 FL (83-96); MEAN CORPUSCULAR HEMOGLOBIN 21.6 PG (28-34); MEAN CORPUSCULAR HGB CONC 29.8 g/dL (30-36); MEAN PLATELET VOLUME 6.9 FL (6.5-11.5); MONOCYTE# 0.7 X10e3 (0-1.0); MONOCYTE% 7.1 % (3.0-12.0); NEUTROPHIL# 6.5 X10e3 (1.5-7.1); NEUTROPHIL% 69.6 % (40-75); PLATELET COUNT 493 X10e3 (140-420); RED BLOOD COUNT 3.84 X10e (3.90-5.60); RED CELL DISTRIBUTION WIDTH 18.4 % (11.0-15.5); WHITE BLOOD COUNT 9.4 X10e3 (4.0-10.5)
[2017-02-15 10:22] LABS: DIFF IND NO
[2017-02-15 10:25] LABS: ALBUMIN SERUM 3.5 g/dL (3.5-5.0); BILIRUBIN,TOTAL 0.9 mg/dL (0.2-2.0); CALCIUM SERUM 8.9 mg/dL (8.4-10.2); GLOM FILT RATE Estimated 94.4 mL/min (>60); POTASSIUM 4.6 mmol/L (3.5-5.1); PROTEIN TOTAL SERUM 6.7 g/dL (6.0-8.3)
[2017-02-15 10:28] LABS: THYROID STIMULATING HORMONE 3.47 uIU/ml (0.34-5.60)
[2017-02-15 10:35] LABS: FREE THYROXIN (T4) 1.13 ng/dL (0.58-1.64)
== END 2017-02-19 13:50 | disposition home or self-care (01) | DRG 885 ==
LOC: P1S 10:52
PROVIDERS: Psychiatry & Neurology Psychiatry
DX: F31.60 Bipolar disorder, current episode mixed, unspecified (principal); G40.909 Epilepsy, unspecified, not intractable, without status epilepticus; I10 Essential (primary) hypertension; E03.9 Hypothyroidism, unspecified; Z91.14 Patient's other noncompliance with medication regimen; Z86.73 Personal history of transient ischemic attack (TIA), and cerebral infarction without residual deficits; F17.210 Nicotine dependence, cigarettes, uncomplicated; D64.9 Anemia, unspecified
CPT/HCPCS: 80053; 84439; 84443; 85025; J1200; J1630; J2060; J3486

== ENCOUNTER 2017-03-02 14:08 | Emergency (ER) | payer OTHER ==
--- NOTE | ~2017-03-02 | CT71 ---
[facility] A Service of [facility] RADIOLOGY TEXT RESULTS PATIENT: ELSIE JACOBS LOCATION: [facility] : 57 UNIT #: [id number] AGE: [address]: Lauren Garcia MD SEX: M ORDER DR: [id number] [facility] [address] [place], [place] [address] [id number] MR#: [id number] Acc #: [id number] NAME: ELSIE JACOBS : 1955 SEX: M STUDY DATE/TIME: 03/02/2017 15:49 UNIT: RE[facility] ROOM: STUDY DESCRIPTION: CT Head Wo Contrast Attending Physician: Lauren Garcia M.D. Ordering Physician: Michael Maria M.D. Primary Care Physician: No Primary Care Physician MEDICAL IMAGING REPORT This report is preliminary unless electronic signature is present EXAM CT brain without contrast HISTORY Head injury, positive loss of consciousness. He had a headache today. TECHNIQUE Axial imaging of the brain was performed without contrast media. Bone and soft tissue windows are reviewed. This CT exam was performed with one or more of the following radiation dose reduction techniques: automatic exposure control, adjustment of mA and/or kV according to patient size, and iterative reconstruction. FINDINGS Ventricular size and configuration is normal. No intra or extraaxial mass lesions, fluid collections or mass effect are seen. No focal areas of low attenuation or evidence of acute hemorrhage. There is a scalp hematoma over the left frontal bone. No fractures are identified. CONCLUSION Scalp hematoma over the left frontal bone. No acute intracranial findings. Dictated by... Woody Ruelas M.D. THIS IS AN ELECTRONICALLY VERIFIED REPORT Woody Ruelas M.D. at 03/05/2017 5:11 PM BRENDEN/julian TD: 03/02/2017 20:38 JOB #: [id number] [facility] A Service of [facility] RADIOLOGY TEXT RESULTS PATIENT: ELSIE JACOBS LOCATION: [facility] : 57 UNIT #: [id number] AGE: [address]: Lauren Garcia MD SEX: M ORDER DR: MEDICAL IMAGING REPORT Page 1 of 1 COPY
== END 2017-03-02 18:27 | disposition home or self-care (01) ==
LOC: CED 14:08
DX: S06.0X9A Concussion with loss of consciousness of unspecified duration, initial encounter (principal); S40.021A Contusion of right upper arm, initial encounter; Z23 Encounter for immunization; K21.9 Gastro-esophageal reflux disease without esophagitis; Z86.73 Personal history of transient ischemic attack (TIA), and cerebral infarction without residual deficits; F17.200 Nicotine dependence, unspecified, uncomplicated; I10 Essential (primary) hypertension; W22.8XXA Striking against or struck by other objects, initial encounter; Y92.410 Unspecified street and highway as the place of occurrence of the external cause
CPT/HCPCS: 70450; 90471; 90715; 99284